=== PATIENT | male | born 1985 | race Caucasian/White ===

== ENCOUNTER 2017-01-06 04:01 | Inpatient (IN) | payer BC ==
[~2017-01-06] VITALS: Ht 172.7 cm; Wt 77.3 kg
[2017-01-06] MEDS ORDERED: SERT50TA12 PO (04:04)
[2017-01-06 04:35] LABS: BASOPHILS # (AUTO) 0.05 K/uL (0.00-0.20); BASOPHILS % (AUTO) 0.4 % (0.0-2.0); EOSINOPHILS # (AUTO) 0.04 K/uL (0.00-0.70); EOSINOPHILS % (AUTO) 0.33 % (1.0-6.0); HEMATOCRIT 43.6 % (41-53); HEMOGLOBIN 14.8 g/dL (13.5-17.5); LYMPHOCYTES # (AUTO) 2.4 K/uL (1.0-4.8); LYMPHOCYTES % (AUTO) 17.5 % (22.0-44.0); MEAN CORPUSCULAR HEMOGLOBIN 31.5 pg (26.0-34.0); MEAN CORPUSCULAR VOLUME 93 fL (80-100); MONOCYTES # (AUTO) 0.9 K/uL (0.1-1.0); MONOCYTES % (AUTO) 6.7 % (2.0-9.0); NEUTROPHILS # (AUTO) 10.1 K/uL (1.8-7.7); PLATELET COUNT (AUTO) 271 K/uL (150-450); RED BLOOD CELL COUNT(AUTO) 4.71 MIL/uL (4.50-5.90); RED CELL DISTRIBUTION WIDTH 12.8 % (11.5-14.5); WHITE BLOOD COUNT (AUTO) 13.4 K/uL (4.5-11.0)
[2017-01-06 04:44] LABS: ANION GAP 14 mmol/L (8-16); CALCIUM, TOTAL 9.9 mg/dL (8.8-10.5); CARBON DIOXIDE 23 mmol/L (22-29); CHLORIDE 102 mmol/L (98-107); CREATININE 1.03 mg/dL (0.60-1.30); GLOMERULAR FILTR. RATE CALC > 60 mL/min (>60); POTASSIUM 3.6 mmol/L (3.5-5.1); SODIUM SERUM 139 mmol/L (136-145); UREA NITROGEN, BLOOD 15 mg/dL (7-18)
[2017-01-06] MEDS ORDERED: ZOLPIDEM TARTRATE 10 MG TABLET PO PRN (04:45)
[2017-01-06] MEDS ORDERED: HALOPERIDOL 5 MG TABLET PO PRN (04:45)
[2017-01-06 04:47] LABS: ALANINE AMINOTRANSFERASE 135 U/L (12-78); ALBUMIN 4.8 g/dL (3.4-5.0); ASPARTATE AMINOTRANSFERASE 120 U/L (15-37); BILIRUBIN,TOTAL 1.8 mg/dL (0.1-1.0); TOTAL PROTEIN, SERUM 7.9 g/dL (6.4-8.2)
[2017-01-06 05:19] LABS: APPEARANCE,URINE CLOUDY (CLEAR); GLUCOSE, URINE (UA) NEGATIVE (NEGATIVE); KETONES,URINE >=80 mg/dL (NEGATIVE); LEUKOCYTE ESTERASE ,URINE NEGATIVE (NEGATIVE); OCCULT BLOOD,URINE SMALL (NEGATIVE); PROTEIN,URINE POS 1+ (NEGATIVE)
[2017-01-06 05:21] LABS: ADD UA MICROSCOPIC YES
[2017-01-06 05:23] LABS: CHOL/HDL RATIO 2.5 (4.2-7.3)
[2017-01-06 05:30] LABS: WBC,URINE None Seen /HPF (0-5)
[2017-01-06] MEDS ORDERED: LORazepam 2 MG/ML VIAL IM ONE (05:30)
[2017-01-06] MEDS ORDERED: HALOPERIDOL LACTATE 5 MG/ML VIAL IM ONE (05:30)
[2017-01-06] MEDS ORDERED: DiphenhydrAMINE HCL 50 MG/ML VIAL IM ONE (05:30)
[2017-01-06 05:31] LABS: CALCIUM OXALATE CRYSTALS,UR Moderate /LPF (None Seen)
[2017-01-06] MEDS: LORazepam 2 MG TABLET PO PRN (17:56)
[2017-01-06 20:06] VITALS: BP 135/89
[2017-01-07 04:55] VITALS: BP 125/91
[2017-01-07] MEDS: LORazepam 2 MG TABLET PO PRN (08:31)
[2017-01-07 09:31] VITALS: BP 153/92
[2017-01-07] MEDS ORDERED: OLAN5TAB2 PO (09:31)
[2017-01-07] MEDS: OLANZapine 5 MG TABLET PO SCH ×2 (09:45→20:21)
[2017-01-07] MEDS: SERTRALINE HCL 100 MG TABLET PO SCH (09:45)
[2017-01-07 13:25] VITALS: BP 140/84
[2017-01-07 16:07] VITALS: BP 141/82
[2017-01-08 00:10] VITALS: BP 140/80
[2017-01-08 08:00] VITALS: BP 141/88
[2017-01-08] MEDS: SERTRALINE HCL 100 MG TABLET PO SCH (08:41)
[2017-01-08] MEDS: OLANZapine 5 MG TABLET PO SCH ×2 (08:41→20:40)
[2017-01-08 16:18] VITALS: BP 163/87
[2017-01-08] MEDS ORDERED: METOPROLOL TARTRATE 25 MG TABLET PO SCH (17:00)
[2017-01-09 00:14] VITALS: BP 135/90
[2017-01-09 08:11] VITALS: BP 124/88
[2017-01-09] MEDS: SERTRALINE HCL 100 MG TABLET PO SCH ×2 (09:00→09:19)
[2017-01-09] MEDS: OLANZapine 5 MG TABLET PO SCH ×3 (09:00→20:50)
[2017-01-09 16:33] VITALS: BP 140/86
[2017-01-10 00:01] VITALS: BP 137/85
[2017-01-10 08:19] VITALS: BP 145/81
[2017-01-10] MEDS: SERTRALINE HCL 100 MG TABLET PO SCH (08:52)
[2017-01-10] MEDS: OLANZapine 5 MG TABLET PO SCH ×3 (08:52→20:55)
[2017-01-10 16:16] VITALS: BP 135/70
[2017-01-11] MEDS: SERTRALINE HCL 100 MG TABLET PO SCH (09:00)
[2017-01-11] MEDS: OLANZapine 5 MG TABLET PO SCH ×2 (09:00→20:42)
[2017-01-11 09:10] VITALS: BP 127/96
[2017-01-12 08:13] VITALS: BP 145/89
[2017-01-12] MEDS: OLANZapine 5 MG TABLET PO SCH ×2 (09:00→20:49)
[2017-01-12] MEDS: SERTRALINE HCL 100 MG TABLET PO SCH (09:00)
[2017-01-12] MEDS ORDERED: HALOPERIDOL LACTATE 5 MG/ML VIAL IM PRN (16:45)
[2017-01-13 06:00] VITALS: BP 138/85
[2017-01-13 08:25] VITALS: BP 107/63
[2017-01-13 08:33] VITALS: BP 143/80
[2017-01-13] MEDS: OLANZapine 5 MG TABLET PO SCH ×2 (08:56→20:29)
[2017-01-13] MEDS: SERTRALINE HCL 100 MG TABLET PO SCH (08:56)
[2017-01-14 07:59] LABS: INR 1.1 (0.9-1.1); PROTHROMBIN TIME 11.8 SEC (9.4-11.6)
[2017-01-14 08:20] VITALS: BP 135/70
[2017-01-14 08:36] LABS: ALANINE AMINOTRANSFERASE 102 U/L (12-78); ALBUMIN 4.5 g/dL (3.4-5.0); ANION GAP 11 mmol/L (8-16); ASPARTATE AMINOTRANSFERASE 46 U/L (15-37); BILIRUBIN,TOTAL 0.9 mg/dL (0.1-1.0); CALCIUM, TOTAL 9.4 mg/dL (8.8-10.5); CARBON DIOXIDE 30 mmol/L (22-29); CHLORIDE 101 mmol/L (98-107); CHOL/HDL RATIO 3.8 (4.2-7.3); CREATINE KINASE MB 2.1 ng/mL (0-5); CREATINE KINASE, TOTAL 142 U/L (39-308); CREATININE 0.97 mg/dL (0.60-1.30); GLOMERULAR FILTR. RATE CALC > 60 mL/min (>60); POTASSIUM 3.6 mmol/L (3.5-5.1); SODIUM SERUM 142 mmol/L (136-145); TOTAL PROTEIN, SERUM 7.7 g/dL (6.4-8.2); UREA NITROGEN, BLOOD 9 mg/dL (7-18)
[2017-01-14] MEDS: OLANZapine 5 MG TABLET PO SCH ×2 (09:03→20:47)
[2017-01-14] MEDS: SERTRALINE HCL 100 MG TABLET PO SCH (09:03)
[2017-01-14 14:41] LABS: VITAMIN B12 LEVEL > 2000 pg/mL (211-911)
[2017-01-14 16:15] VITALS: BP 128/71
[2017-01-15 06:55] VITALS: BP 154/92
[2017-01-15] MEDS: CloNIDine HCL 0.1 MG TABLET PO PRN ×2 (07:01→16:41)
[2017-01-15 08:52] VITALS: BP_SYST 121; BP_DIAS 88; BP_DIAS 92
[2017-01-15] MEDS: SERTRALINE HCL 100 MG TABLET PO SCH (09:17)
[2017-01-15] MEDS: OLANZapine 5 MG TABLET PO SCH ×2 (09:17→21:05)
[2017-01-15 09:53] LABS: HEPATITIS Bs ANTIGEN SCREEN P Negative (Negative); HEPATITIS C AB SCREEN 0.1 s/co ratio (0.0-0.9)
[2017-01-15 16:34] VITALS: BP 165/104
[2017-01-15 17:45] VITALS: BP 126/74
[2017-01-16 08:35] VITALS: BP 149/88
[2017-01-16] MEDS: SERTRALINE HCL 100 MG TABLET PO SCH (09:21)
[2017-01-16] MEDS: OLANZapine 5 MG TABLET PO SCH (09:21)
[2017-01-16] MEDS ORDERED: SERT100T12 PO (11:22)
[2017-01-16] MEDS: OLANZapine 10 MG TABLET PO SCH (20:43)
[2017-01-17 08:17] VITALS: BP 127/89
[2017-01-17] MEDS: OLANZapine 5 MG TABLET PO SCH (09:50)
[2017-01-17] MEDS: SERTRALINE HCL 100 MG TABLET PO SCH (09:51)
[2017-01-17] MEDS: AmLODIPine BESYLATE 2.5 MG TABLET PO SCH (09:51)
[2017-01-17 16:19] VITALS: BP 142/84
[2017-01-17] MEDS: OLANZapine 10 MG TABLET PO SCH (20:30)
[2017-01-18 08:41] VITALS: BP 131/83
[2017-01-18] MEDS: OLANZapine 5 MG TABLET PO SCH (09:58)
[2017-01-18] MEDS: SERTRALINE HCL 100 MG TABLET PO SCH (09:59)
[2017-01-18] MEDS: AmLODIPine BESYLATE 2.5 MG TABLET PO SCH (13:36)
[2017-01-18] MEDS ORDERED: OLAN5TAB2 PO (13:50)
[2017-01-18] MEDS ORDERED: AMLO2.5T PO (13:50)
[2017-01-18] MEDS ORDERED: OLAN10TA3 PO (13:50)
== END 2017-01-18 14:45 | disposition home or self-care (01) | DRG 885 ==
LOC: EMS 04:03 → AHU 12:55 → B2X 17:10
DX: F31.5 Bipolar disorder, current episode depressed, severe, with psychotic features (principal); R45.851 Suicidal ideations; Z91.14 Patient's other noncompliance with medication regimen; I10 Essential (primary) hypertension; D72.828 Other elevated white blood cell count; K59.00 Constipation, unspecified; Z91.19 Patient's noncompliance with other medical treatment and regimen; R79.89 Other specified abnormal findings of blood chemistry; F12.90 Cannabis use, unspecified, uncomplicated
CPT/HCPCS: 80074; 82306; 82607; 82746; 83735; 99285; G0480; J1200; J1630; J2060

== ENCOUNTER 2017-05-04 14:30 | Inpatient (IN) | payer BC ==
[~2017-05-04] VITALS: Ht 170.2 cm; Wt 79.9 kg
[~2017-05-04 14:30] MED LIST: AMLO2.5T PO; OLAN10TA3 PO; OLAN5TAB2 PO; SERT100T12 PO
[2017-05-04] MEDS ORDERED: HALOPERIDOL 5 MG TABLET PO PRN (18:15)
[2017-05-04 19:03] VITALS: BP 167/109
[2017-05-04] MEDS: CloNIDine HCL 0.1 MG TABLET PO SCH (19:13)
[2017-05-04] MEDS: AmLODIPine BESYLATE 5 MG TABLET PO SCH (19:13)
[2017-05-04] MEDS ORDERED: INFLUENZA VIRUS VACCINE QVS 2017-18 (3YR+)/PF 60 MCG/0.5 ML SYRINGE IM ONE (20:00)
[2017-05-04] MEDS ORDERED: PNEUMOCOCCAL VACCINE POLYVALENT 0.5 ML VIAL [PPSV23] IM ONE (20:00)
[2017-05-04] MEDS: LORazepam 2 MG TABLET PO PRN (20:10)
[2017-05-04] MEDS: ZOLPIDEM TARTRATE 10 MG TABLET PO PRN (20:10)
[2017-05-04 20:13] VITALS: BP 109/64
[2017-05-05 05:47] VITALS: BP 130/65
[2017-05-05 07:35] LABS: BASOPHILS # (AUTO) 0.03 K/uL (0.00-0.20); BASOPHILS % (AUTO) 0.3 % (0.0-2.0); EOSINOPHILS # (AUTO) 0.22 K/uL (0.00-0.70); EOSINOPHILS % (AUTO) 2.76 % (1.0-6.0); HEMATOCRIT 46.7 % (41-53); HEMOGLOBIN 15.5 g/dL (13.5-17.5); LYMPHOCYTES # (AUTO) 3.2 K/uL (1.0-4.8); LYMPHOCYTES % (AUTO) 39.8 % (22.0-44.0); MEAN CORPUSCULAR HEMOGLOBIN 31.6 pg (26.0-34.0); MEAN CORPUSCULAR HGB CONC 33.2 G/dL (31.0-37.0); MEAN CORPUSCULAR VOLUME 95 fL (80-100); MONOCYTES # (AUTO) 0.4 K/uL (0.1-1.0); MONOCYTES % (AUTO) 4.8 % (2.0-9.0); NEUTROPHILS # (AUTO) 4.2 K/uL (1.8-7.7); NEUTROPHILS % (AUTO) 52.3 % (40.0-70.0); PLATELET COUNT (AUTO) 263 K/uL (150-450); RED BLOOD CELL COUNT(AUTO) 4.89 MIL/uL (4.50-5.90)
[2017-05-05 07:55] LABS: HEMOGLOBIN A1C 5.5 % (4.5-6.2)
[2017-05-05] MEDS: CloNIDine HCL 0.1 MG TABLET PO SCH ×2 (08:22→16:13)
[2017-05-05] MEDS: AmLODIPine BESYLATE 5 MG TABLET PO SCH (08:22)
[2017-05-05 09:07] VITALS: BP 138/73
[2017-05-05 09:38] LABS: ALANINE AMINOTRANSFERASE 96 U/L (12-78); ALBUMIN 4.5 g/dL (3.4-5.0); ALKALINE PHOSPHATASE 75 U/L (46-116); ASPARTATE AMINOTRANSFERASE 50 U/L (15-37); BILIRUBIN,TOTAL 0.7 mg/dL (0.1-1.0); CALCIUM, TOTAL 9.3 mg/dL (8.8-10.5); CARBON DIOXIDE 31 mmol/L (22-29); CHOL/HDL RATIO 3.5 (4.2-7.3); CHOLESTEROL 197 mg/dL (131-200); FREE T4 (FREE THYROXINE) 0.77 ng/dL (0.76-1.46); GLOMERULAR FILTR. RATE CALC > 60 mL/min (>60); GLUCOSE,RANDOM 99 mg/dL (70-110); HDL CHOLESTEROL 56 mg/dL (40-60); LDL CHOL (CALC.) 113 mg/dL (0-130); THYROID STIMULATING HORMONE 1.24 uIU/mL (0.36-3.74); TRIGLYCERIDES 138 mg/dL (15-150); UREA NITROGEN, BLOOD 15 mg/dL (7-18)
[2017-05-05 10:03] LABS: ANION GAP 7 mmol/L (8-16); CHLORIDE 102 mmol/L (98-107); POTASSIUM 4.3 mmol/L (3.5-5.1); SODIUM SERUM 140 mmol/L (136-145)
[2017-05-05 16:40] VITALS: BP 107/63
[2017-05-05] MEDS: OLANZapine 10 MG TABLET PO SCH (20:42)
[2017-05-05] MEDS: ZOLPIDEM TARTRATE 10 MG TABLET PO PRN (21:38)
[2017-05-06 00:44] VITALS: BP 127/84
[2017-05-06 08:00] VITALS: BP 139/85
[2017-05-06] MEDS: SERTRALINE HCL 100 MG TABLET PO SCH (08:08)
[2017-05-06] MEDS: AmLODIPine BESYLATE 5 MG TABLET PO SCH (08:08)
[2017-05-06] MEDS: CloNIDine HCL 0.1 MG TABLET PO SCH ×2 (08:08→16:27)
[2017-05-06] MEDS: OLANZapine 5 MG TABLET PO SCH (08:08)
[2017-05-06 16:00] VITALS: BP 131/84
[2017-05-06] MEDS: LORazepam 2 MG TABLET PO PRN (16:57)
[2017-05-06] MEDS: OLANZapine 10 MG TABLET PO SCH (20:17)
[2017-05-06] MEDS: ZOLPIDEM TARTRATE 10 MG TABLET PO PRN (22:40)
[2017-05-07 00:45] VITALS: BP 101/92
[2017-05-07 08:41] VITALS: BP 132/87
[2017-05-07] MEDS: AmLODIPine BESYLATE 5 MG TABLET PO SCH (09:39)
[2017-05-07] MEDS: SERTRALINE HCL 100 MG TABLET PO SCH (09:39)
[2017-05-07] MEDS: CloNIDine HCL 0.1 MG TABLET PO SCH ×2 (09:40→16:40)
[2017-05-07] MEDS: OLANZapine 5 MG TABLET PO SCH (09:40)
[2017-05-07] MEDS: LORazepam 2 MG TABLET PO PRN ×2 (12:16→18:48)
[2017-05-07 16:23] VITALS: BP 137/81
[2017-05-07] MEDS: OLANZapine 10 MG TABLET PO SCH (20:28)
[2017-05-07] MEDS: ZOLPIDEM TARTRATE 10 MG TABLET PO PRN (21:10)
[2017-05-08 02:39] VITALS: BP 125/81
[2017-05-08] MEDS: LORazepam 2 MG TABLET PO PRN (02:42)
[2017-05-08] MEDS ORDERED: CLON0.1T PO (08:16)
[2017-05-08] MEDS: CloNIDine HCL 0.1 MG TABLET PO SCH (08:26)
[2017-05-08] MEDS: AmLODIPine BESYLATE 5 MG TABLET PO SCH (08:27)
[2017-05-08] MEDS: SERTRALINE HCL 100 MG TABLET PO SCH (08:27)
[2017-05-08] MEDS: OLANZapine 5 MG TABLET PO SCH (08:27)
[2017-05-08 08:29] VITALS: BP 147/84
[2017-05-08] MEDS ORDERED: OLAN10TA3 PO (08:33)
== END 2017-05-08 09:30 | disposition home or self-care (01) | DRG 885 ==
LOC: B2S 18:23
PROVIDERS: ADMIT Psychiatry & Neurology Psychiatry; ATTEND Psychiatry & Neurology Psychiatry
DX: F31.4 Bipolar disorder, current episode depressed, severe, without psychotic features (principal); F41.9 Anxiety disorder, unspecified; I10 Essential (primary) hypertension; Z79.899 Other long term (current) drug therapy
CPT/HCPCS: 83036; 84439; 84443

== ENCOUNTER 2017-06-11 19:40 | Inpatient (IN) | payer BC ==
[~2017-06-11] VITALS: Ht 170.2 cm; Wt 77.6 kg
[~2017-06-11 19:40] MED LIST changes: +CLON0.1T PO
[2017-06-11 20:33] VITALS: BP 156/95
[2017-06-11] MEDS: OLANZapine 10 MG TABLET PO SCH (21:28)
[2017-06-11] MEDS ORDERED: PNEUMOCOCCAL VACCINE POLYVALENT 0.5 ML VIAL [PPSV23] IM ONE (21:30)
[2017-06-11] MEDS ORDERED: INFLUENZA VIRUS VACCINE QVS 2017-18 (3YR+)/PF 60 MCG/0.5 ML SYRINGE IM ONE (21:30)
[2017-06-11] MEDS ORDERED: IBUPROFEN 600 MG TABLET PO ONE (22:15)
[2017-06-11] MEDS ORDERED: ACETAMINOPHEN 500 MG TABLET PO ONE (22:15)
[2017-06-11 22:22] LABS: BASOPHILS % (AUTO) 0.6 % (0.0-2.0); HEMATOCRIT 41.2 % (41-53); LYMPHOCYTES % (AUTO) 26.9 % (22.0-44.0); MEAN CORPUSCULAR HEMOGLOBIN 31.4 pg (26.0-34.0); MEAN CORPUSCULAR HGB CONC 33.9 G/dL (31.0-37.0); MEAN CORPUSCULAR VOLUME 92 fL (80-100); MONOCYTES # (AUTO) 0.8 K/uL (0.1-1.0); MONOCYTES % (AUTO) 6.8 % (2.0-9.0); NEUTROPHILS # (AUTO) 7.2 K/uL (1.8-7.7); NEUTROPHILS % (AUTO) 63.7 % (40.0-70.0); PLATELET COUNT (AUTO) 258 K/uL (150-450); RED BLOOD CELL COUNT(AUTO) 4.45 MIL/uL (4.50-5.90); RED CELL DISTRIBUTION WIDTH 13.4 % (11.5-14.5)
[2017-06-11 22:39] LABS: ANION GAP 9 mmol/L (8-16); CALCIUM, TOTAL 8.9 mg/dL (8.8-10.5); CARBON DIOXIDE 28 mmol/L (22-29); CHLORIDE 101 mmol/L (98-107); CREATININE 0.79 mg/dL (0.60-1.30); GLOMERULAR FILTR. RATE CALC > 60 mL/min (>60); GLUCOSE,RANDOM 100 mg/dL (70-110); POTASSIUM 3.8 mmol/L (3.5-5.1); SODIUM SERUM 138 mmol/L (136-145); UREA NITROGEN, BLOOD 21 mg/dL (7-18)
[2017-06-11 22:52] LABS: ALANINE AMINOTRANSFERASE 50 U/L (12-78); ALBUMIN 3.9 g/dL (3.4-5.0); ALKALINE PHOSPHATASE 60 U/L (46-116); ASPARTATE AMINOTRANSFERASE 48 U/L (15-37); BILIRUBIN,TOTAL 0.8 mg/dL (0.1-1.0)
[2017-06-12 08:56] LABS: BASOPHILS % (AUTO) 0.6 % (0.0-2.0); EOSINOPHILS % (AUTO) 3.4 % (1.0-6.0); HEMATOCRIT 41.5 % (41-53); LYMPHOCYTES # (AUTO) 2.5 K/uL (1.0-4.8); MEAN CORPUSCULAR HEMOGLOBIN 31.4 pg (26.0-34.0); MEAN CORPUSCULAR HGB CONC 33.8 G/dL (31.0-37.0); MEAN CORPUSCULAR VOLUME 93 fL (80-100); MONOCYTES # (AUTO) 0.5 K/uL (0.1-1.0); MONOCYTES % (AUTO) 7.1 % (2.0-9.0); NEUTROPHILS # (AUTO) 3.3 K/uL (1.8-7.7); NEUTROPHILS % (AUTO) 50.9 % (40.0-70.0); PLATELET COUNT (AUTO) 226 K/uL (150-450); RED BLOOD CELL COUNT(AUTO) 4.47 MIL/uL (4.50-5.90); RED CELL DISTRIBUTION WIDTH 13.5 % (11.5-14.5)
[2017-06-12] MEDS ORDERED: SERTRALINE HCL 100 MG TABLET PO SCH (09:00)
[2017-06-12 09:05] LABS: HEMOGLOBIN A1C 5.2 % (4.5-6.2)
[2017-06-12] MEDS: SERTRALINE HCL 100 MG TABLET PO SCH (09:16)
[2017-06-12] MEDS: OLANZapine 5 MG TABLET PO SCH (09:17)
[2017-06-12 09:24] LABS: ALANINE AMINOTRANSFERASE 41 U/L (12-78); ALBUMIN 3.6 g/dL (3.4-5.0); ALKALINE PHOSPHATASE 52 U/L (46-116); ANION GAP 3 mmol/L (8-16); ASPARTATE AMINOTRANSFERASE 39 U/L (15-37); BILIRUBIN,TOTAL 1.1 mg/dL (0.1-1.0); CALCIUM, TOTAL 8.8 mg/dL (8.8-10.5); CARBON DIOXIDE 33 mmol/L (22-29); CHLORIDE 104 mmol/L (98-107); CHOLESTEROL 179 mg/dL (131-200); CREATININE 0.87 mg/dL (0.60-1.30); FREE T4 (FREE THYROXINE) 0.77 ng/dL (0.76-1.46); GLOMERULAR FILTR. RATE CALC > 60 mL/min (>60); GLUCOSE,RANDOM 95 mg/dL (70-110); HDL CHOLESTEROL 59 mg/dL (40-60); LDL CHOL (CALC.) 99 mg/dL (0-130); POTASSIUM 4.2 mmol/L (3.5-5.1); SODIUM SERUM 140 mmol/L (136-145); THYROID STIMULATING HORMONE 0.76 uIU/mL (0.36-3.74); TOTAL PROTEIN, SERUM 5.5 g/dL (6.4-8.2); TRIGLYCERIDES 107 mg/dL (15-150); UREA NITROGEN, BLOOD 19 mg/dL (7-18)
[2017-06-12 09:45] LABS: APPEARANCE,URINE CLEAR (CLEAR); BILIRUBIN,URINE NEGATIVE (NEGATIVE); GLUCOSE, URINE (UA) NEGATIVE (NEGATIVE); KETONES,URINE NEGATIVE (NEGATIVE); LEUKOCYTE ESTERASE ,URINE NEGATIVE (NEGATIVE); NITRATE,URINE NEGATIVE (NEGATIVE); OCCULT BLOOD,URINE TRACE (NEGATIVE); PH,URINE 6.5 (5.0-8.0); PROTEIN,URINE NEGATIVE (NEGATIVE); UROBILINOGEN,URINE 0.2 mg/dL (<=1.0)
[2017-06-12 10:06] LABS: AMPHET/METH SCREEN,URINE NEGATIVE (NEGATIVE); BARBITURATE SCREEN, URINE NEGATIVE (NEGATIVE); BENZODIAZEPINES SCREEN,URINE NEGATIVE (NEGATIVE); CANNABINOID SCREEN,URINE POSITIVE (NEGATIVE); COCAINE SCREEN,URINE NEGATIVE (NEGATIVE); METHADONE SCREEN, URINE NEGATIVE (NEGATIVE); OPIATE SCREEN,URINE NEGATIVE (NEGATIVE)
[2017-06-12 10:08] LABS: PHENCYCLIDINE SCREEN,URINE NEGATIVE (NEGATIVE); RBC,URINE 0-2 /HPF (0-2); WBC,URINE 0-2 /HPF (0-5)
[2017-06-12 10:09] LABS: BACTERIA,URINE Rare /HPF (None Seen); SQUAMOUS EPITHELIAL CELL,UR Rare /LPF (None Seen)
[2017-06-12 11:30] VITALS: BP 133/77
[2017-06-12 12:30] VITALS: BP 136/80
[2017-06-12] MEDS: IBUPROFEN 600 MG TABLET PO PRN (12:35)
[2017-06-12 16:11] VITALS: BP 118/64
[2017-06-12 17:06] VITALS: BP 115/67
[2017-06-12] MEDS: CloNIDine HCL 0.1 MG TABLET PO SCH (17:07)
[2017-06-12] MEDS: OLANZapine 10 MG TABLET PO SCH (20:36)
[2017-06-13 01:18] VITALS: BP 114/60
[2017-06-13 08:25] VITALS: BP 132/86
[2017-06-13] MEDS: SERTRALINE HCL 100 MG TABLET PO SCH (09:14)
[2017-06-13] MEDS: CloNIDine HCL 0.1 MG TABLET PO SCH ×2 (09:14→16:33)
[2017-06-13] MEDS: OLANZapine 5 MG TABLET PO SCH (09:14)
[2017-06-13] MEDS: AmLODIPine BESYLATE 5 MG TABLET PO SCH (09:14)
[2017-06-13 12:04] VITALS: BP 122/77
[2017-06-13] MEDS: IBUPROFEN 600 MG TABLET PO PRN (12:04)
[2017-06-13 16:30] VITALS: BP 137/84
[2017-06-13] MEDS: ACETAMINOPHEN 325 MG TABLET PO PRN (16:40)
[2017-06-13] MEDS: OLANZapine 10 MG TABLET PO SCH (20:13)
[2017-06-14 00:13] VITALS: BP 131/86
[2017-06-14] MEDS: IBUPROFEN 600 MG TABLET PO PRN ×3 (00:20→17:39)
[2017-06-14 08:00] VITALS: BP 162/80
[2017-06-14] MEDS: OLANZapine 5 MG TABLET PO SCH (09:11)
[2017-06-14] MEDS: SERTRALINE HCL 100 MG TABLET PO SCH (09:11)
[2017-06-14] MEDS: CloNIDine HCL 0.1 MG TABLET PO SCH ×2 (09:11→16:18)
[2017-06-14] MEDS: AmLODIPine BESYLATE 5 MG TABLET PO SCH (09:11)
[2017-06-14 16:34] VITALS: BP 123/66
[2017-06-14] MEDS: OLANZapine 10 MG TABLET PO SCH (20:28)
[2017-06-15 06:43] VITALS: BP 140/75
[2017-06-15 08:30] VITALS: BP 123/81
[2017-06-15] MEDS: AmLODIPine BESYLATE 5 MG TABLET PO SCH (08:53)
[2017-06-15] MEDS: CloNIDine HCL 0.1 MG TABLET PO SCH ×2 (08:53→16:21)
[2017-06-15] MEDS: IBUPROFEN 600 MG TABLET PO PRN ×2 (08:53→21:20)
[2017-06-15] MEDS: SERTRALINE HCL 100 MG TABLET PO SCH (08:53)
[2017-06-15] MEDS: OLANZapine 5 MG TABLET PO SCH (08:53)
[2017-06-15 16:08] VITALS: BP 117/75
[2017-06-15] MEDS: ACETAMINOPHEN 325 MG TABLET PO PRN (16:32)
[2017-06-15] MEDS: OLANZapine 10 MG TABLET PO SCH (20:28)
[2017-06-16 01:02] VITALS: BP 118/65
[2017-06-16 08:15] VITALS: BP 134/89
[2017-06-16] MEDS: CloNIDine HCL 0.1 MG TABLET PO SCH (08:39)
[2017-06-16] MEDS: SERTRALINE HCL 100 MG TABLET PO SCH (08:39)
[2017-06-16] MEDS: OLANZapine 5 MG TABLET PO SCH (08:39)
[2017-06-16] MEDS: AmLODIPine BESYLATE 5 MG TABLET PO SCH (08:39)
[2017-06-17] MEDS ORDERED: AMLO-511 PO (14:46)
== END 2017-06-16 12:30 | disposition home or self-care (01) | DRG 885 ==
LOC: EDSTATUS 19:40 → BV PSY EVL 21:07 → B3A 23:09 → UNDOADMIN 23:09 → B2X 06-12 10:02 → B2S 06-13 13:50
PROC: 3E0234Z Introduction of Serum, Toxoid and Vaccine into Muscle, Percutaneous Approach (ICD-10-PCS; principal; 2017-06-12)
DX: F31.5 Bipolar disorder, current episode depressed, severe, with psychotic features (principal); F12.90 Cannabis use, unspecified, uncomplicated; I10 Essential (primary) hypertension; M54.9 Dorsalgia, unspecified; Z79.899 Other long term (current) drug therapy; Z23 Encounter for immunization
CPT/HCPCS: 71260; 72100; 83036; 84439; 84443; 99285; G0480

== ENCOUNTER 2017-06-17 12:46 | Inpatient (IN) | payer BC ==
[~2017-06-17] VITALS: Ht 170.2 cm; Wt 77.6 kg
[2017-06-17] MEDS ORDERED: HALOPERIDOL 5 MG TABLET PO ONE (13:45)
[2017-06-17] MEDS ORDERED: LORazepam 2 MG TABLET PO ONE (13:45)
[2017-06-17 13:48] LABS: BASOPHILS % (AUTO) 0.2 % (0.0-2.0); EOSINOPHILS % (AUTO) 0.5 % (1.0-6.0); HEMATOCRIT 40.5 % (41-53); LYMPHOCYTES # (AUTO) 1.5 K/uL (1.0-4.8); LYMPHOCYTES % (AUTO) 16.5 % (22.0-44.0); MEAN CORPUSCULAR HEMOGLOBIN 31.5 pg (26.0-34.0); MEAN CORPUSCULAR HGB CONC 34.6 G/dL (31.0-37.0); MEAN CORPUSCULAR VOLUME 91 fL (80-100); MONOCYTES # (AUTO) 0.6 K/uL (0.1-1.0); MONOCYTES % (AUTO) 6.7 % (2.0-9.0); NEUTROPHILS # (AUTO) 7.1 K/uL (1.8-7.7); NEUTROPHILS % (AUTO) 76.1 % (40.0-70.0); PLATELET COUNT (AUTO) 259 K/uL (150-450); RED BLOOD CELL COUNT(AUTO) 4.44 MIL/uL (4.50-5.90); RED CELL DISTRIBUTION WIDTH 12.9 % (11.5-14.5)
[2017-06-17 13:56] LABS: ANION GAP 8 mmol/L (8-16); CALCIUM, TOTAL 9.1 mg/dL (8.8-10.5); CARBON DIOXIDE 29 mmol/L (22-29); CHLORIDE 106 mmol/L (98-107); CREATININE 0.66 mg/dL (0.60-1.30); GLOMERULAR FILTR. RATE CALC > 60 mL/min (>60); GLUCOSE,RANDOM 121 mg/dL (70-110); POTASSIUM 3.7 mmol/L (3.5-5.1); SODIUM SERUM 143 mmol/L (136-145); UREA NITROGEN, BLOOD 15 mg/dL (7-18)
[2017-06-17 14:02] LABS: ALANINE AMINOTRANSFERASE 51 U/L (12-78); ALKALINE PHOSPHATASE 58 U/L (46-116); ASPARTATE AMINOTRANSFERASE 89 U/L (15-37); BILIRUBIN,TOTAL 0.6 mg/dL (0.1-1.0); TOTAL PROTEIN, SERUM 7.1 g/dL (6.4-8.2)
[2017-06-17] MEDS ORDERED: ZOLPIDEM TARTRATE 10 MG TABLET PO PRN (14:30)
[2017-06-17] MEDS ORDERED: MAG HYDROX/AL HYDROX/SIMETH ES 30 ML SUSPENSION UDCUP PO PRN (14:30)
[2017-06-17] MEDS ORDERED: ACETAMINOPHEN 325 MG TABLET PO PRN (14:30)
[2017-06-17] MEDS ORDERED: MAGNESIUM HYDROXIDE SUSPENSION 30 ML UDCUP PO PRN (14:30)
[2017-06-17] MEDS ORDERED: HALOPERIDOL 5 MG TABLET PO PRN (14:30)
[2017-06-17] MEDS ORDERED: AMLO-511 PO (14:46)
[2017-06-17] MEDS ORDERED: TOBRAMYCIN/DEXAMETHASONE 5 ML OPHTHALMIC SUSPENSION OU ONE (16:45)
[2017-06-17 18:52] LABS: AMPHET/METH SCREEN,URINE NEGATIVE (NEGATIVE); BARBITURATE SCREEN, URINE NEGATIVE (NEGATIVE); BENZODIAZEPINES SCREEN,URINE NEGATIVE (NEGATIVE); CANNABINOID SCREEN,URINE POSITIVE (NEGATIVE); COCAINE SCREEN,URINE NEGATIVE (NEGATIVE); METHADONE SCREEN, URINE NEGATIVE (NEGATIVE); OPIATE SCREEN,URINE NEGATIVE (NEGATIVE)
[2017-06-17 18:54] LABS: PHENCYCLIDINE SCREEN,URINE NEGATIVE (NEGATIVE)
[2017-06-17 20:13] VITALS: BP 120/60
[2017-06-17] MEDS ORDERED: INFLUENZA VIRUS VACCINE QVS 2017-18 (3YR+)/PF 60 MCG/0.5 ML SYRINGE IM ONE (20:45)
[2017-06-18 07:19] LABS: CHOL/HDL RATIO 2.9 (4.2-7.3)
[2017-06-18 15:12] VITALS: BP 144/86
[2017-06-18 17:19] VITALS: BP 161/95
[2017-06-18] MEDS: CloNIDine HCL 0.1 MG TABLET PO SCH (17:30)
[2017-06-18 18:00] VITALS: BP 138/86
[2017-06-18] MEDS: OLANZapine 10 MG TABLET PO SCH (20:02)
[2017-06-18] MEDS: ACETAMINOPHEN 325 MG TABLET PO PRN (20:45)
[2017-06-19 00:55] VITALS: BP 124/69
[2017-06-19 08:18] VITALS: BP_SYST 110; BP_SYST 140; BP_DIAS 67; BP_DIAS 79
[2017-06-19] MEDS: AmLODIPine BESYLATE 5 MG TABLET PO SCH (08:34)
[2017-06-19] MEDS: OLANZapine 5 MG TABLET PO SCH (08:34)
[2017-06-19] MEDS: SERTRALINE HCL 100 MG TABLET PO SCH (08:34)
[2017-06-19] MEDS: CloNIDine HCL 0.1 MG TABLET PO SCH ×2 (08:34→16:48)
[2017-06-19 12:01] VITALS: BP 126/76
[2017-06-19] MEDS: ACETAMINOPHEN 325 MG TABLET PO PRN (12:01)
[2017-06-19 16:02] VITALS: BP 129/74
[2017-06-19] MEDS: OLANZapine 10 MG TABLET PO SCH (20:02)
[2017-06-20 06:07] VITALS: BP 138/84
[2017-06-20 08:13] VITALS: BP 148/82
[2017-06-20] MEDS: OLANZapine 5 MG TABLET PO SCH (09:08)
[2017-06-20] MEDS: CloNIDine HCL 0.1 MG TABLET PO SCH ×2 (09:08→16:44)
[2017-06-20] MEDS: AmLODIPine BESYLATE 5 MG TABLET PO SCH (09:08)
[2017-06-20] MEDS: SERTRALINE HCL 100 MG TABLET PO SCH (09:08)
[2017-06-20 16:26] VITALS: BP 127/85
[2017-06-20] MEDS: LORazepam 2 MG TABLET PO PRN (16:45)
[2017-06-20] MEDS: OLANZapine 10 MG TABLET PO SCH (20:46)
[2017-06-21 01:00] VITALS: BP 132/79
[2017-06-21] MEDS: LORazepam 2 MG TABLET PO PRN ×2 (01:04→08:35)
[2017-06-21] MEDS: ACETAMINOPHEN 325 MG TABLET PO PRN ×2 (01:05→08:35)
[2017-06-21 08:31] VITALS: BP 140/76
[2017-06-21] MEDS: MUPIROCIN CALCIUM 2% 22 GM OINTMENT NASAL SCH ×3 (08:33→16:33)
[2017-06-21] MEDS: OLANZapine 5 MG TABLET PO SCH (08:34)
[2017-06-21] MEDS: CloNIDine HCL 0.1 MG TABLET PO SCH ×2 (08:34→16:33)
[2017-06-21] MEDS: SERTRALINE HCL 100 MG TABLET PO SCH (08:34)
[2017-06-21] MEDS: AmLODIPine BESYLATE 5 MG TABLET PO SCH (08:35)
[2017-06-21 08:55] VITALS: BP 140/76
[2017-06-21 17:49] VITALS: BP 134/75
== END 2017-06-21 18:30 | disposition home or self-care (01) | DRG 885 ==
LOC: EMS 12:53 → AHU 18:51 → B2X 06-18 16:24 → B2S 06-19 16:00
PROVIDERS: ADMIT Psychiatry & Neurology Psychiatry
DX: F31.5 Bipolar disorder, current episode depressed, severe, with psychotic features (principal); R45.851 Suicidal ideations; F12.90 Cannabis use, unspecified, uncomplicated; I10 Essential (primary) hypertension; M54.9 Dorsalgia, unspecified; Z79.899 Other long term (current) drug therapy
CPT/HCPCS: 87081; 99285; G0480